=== PATIENT | female | born 1935 | race Caucasian/White ===

== ENCOUNTER → 2017-01-08 | Outpatient (CLI) | payer BC ==
[2016-08-15 10:54] VITALS: BP 145/89
[~2017-01-08] MED LIST: ALEN70TA5 PO; ASPI81TA44 PO; CALC250T PO; CALC667C6 PO; CELE200C PO; CHOL10003 PO; CLON0.1T PO; CRAN200C2 PO; PRAV40TA2 PO; VALS80TA3 PO
--- NOTE | 2017-01-08 12:36 | RAD ---
DATE: 01/08/2017 EXAM: DIGITAL SCREEN BILAT W/CAD HISTORY: Routine screening COMPARISON: 11/29/2015 This study was interpreted with the benefit of Computerized Aided Detection (CAD). FINDINGS: Breast Density: HETERO The breast parenchyma Is heterogeneously dense, which could reduce sensitivity of mammography. Breast parenchyma level C. There are no dominant suspicious masses, suspicious microcalcifications or evidence of architectural distortion. Benign-appearing calcifications bilateral breasts. IMPRESSION: Benign findings BI-RADS CATEGORY: 2 BENIGN FINDING RECOMMENDED FOLLOW-UP: 12M 12 MONTH FOLLOW-UP PQRS compliance statement: Patient information was entered into a reminder system with a target due date 01/08/2018 for the next mammogram. Mammography is a sensitive method for finding small breast cancers, but it does not detect them all and is not a substitute for careful clinical examination. A negative mammogram does not negate a clinically suspicious finding and should not result in delay in biopsying a clinically suspicious abnormality. "Our facility is accredited by the [employer] Mammography [employer]."
== END | disposition home or self-care (01) ==
LOC: MAMMO 10:35
PROVIDERS: ATTEND Family Medicine
DX: Z12.31 Encounter for screening mammogram for malignant neoplasm of breast (principal)
CPT/HCPCS: G0202; 77067